=== PATIENT | female | born 1935 | race Caucasian/White ===

== ENCOUNTER 2019-10-16 08:34 | Emergency (ER) | payer OTHER ==
[~2019-10-16] VITALS: Ht 160 cm; Wt 68.0 kg
[2019-10-16] MEDS ORDERED: NAPR500T14 PO (11:03)
== END 2019-10-16 13:09 | disposition home or self-care (01) ==
LOC: ER 08:34
DX: S00.83XA Contusion of other part of head, initial encounter (principal); S20.212A Contusion of left front wall of thorax, initial encounter; S20.211A Contusion of right front wall of thorax, initial encounter; W22.8XXA Striking against or struck by other objects, initial encounter; Y93.41 Activity, dancing; Y93.89 Activity, other specified